=== PATIENT | female | born 1980 | race Caucasian/White ===

== ENCOUNTER 2019-09-27 13:11 | Emergency (ER) | payer MEDICAID ==
[~2019-09-27] VITALS: Ht 157.5 cm; Wt 78.0 kg
[2019-09-27 17:39] VITALS: BP 148/90
== END 2019-09-27 18:18 | disposition home or self-care (01) ==
LOC: ER 13:14
DX: S63.256A Unspecified dislocation of right little finger, initial encounter (principal); M20.011 Mallet finger of right finger(s); Z91.040 Latex allergy status; X58.XXXA Exposure to other specified factors, initial encounter; Y93.89 Activity, other specified; Y92.89 Other specified places as the place of occurrence of the external cause; Y99.8 Other external cause status
CPT/HCPCS: 26770; 73130